=== PATIENT | male | born 1955 | race African-American/Black ===

== ENCOUNTER 2019-10-23 08:57 | Emergency (ER) | payer OTHER ==
[~2019-10-23] VITALS: Ht 162.6 cm; Wt 77.1 kg
[2019-10-23 09:56] LABS: BASO % 0 % (0-3); EOS % 0 % (0-3); HEMATOCRIT 39.8 % (39.0-53.0); HEMOGLOBIN 13.1 g/dL (13.0-17.5); LYMPH # 1.6 x10^3/uL (1.0-4.8); LYMPH % 13 % (24-48); MEAN CORPUSCULAR HEMOGLOBIN 33 pg (25-35); MEAN CORPUSCULAR HGB CONC 33 g/dL (31-37); MEAN CORPUSCULAR VOLUME 99 fL (79-100); MONO % 8 % (0-9); NEUT # 9.1 x10^3uL (1.8-7.7); NEUT % 78 % (31-73); PLATELET COUNT 295 x10^3/uL (140-400); RED BLOOD COUNT 4.02 x10^6/uL (4.30-5.70); RED CELL DISTRIBUTION WIDTH 13.2 % (11.5-14.5); WHITE BLOOD COUNT 11.7 x10^3/uL (4.0-11.0)
[2019-10-23 10:00] LABS: CALCIUM 8.1 mg/dL (8.5-10.1); CREATININE 0.9 mg/dL (0.7-1.3); GFR 102.5
--- NOTE | 2019-10-23 10:01 | RAD ---
EXAM: Abdomen acute complete. HISTORY: Pain. COMPARISON: None. FINDINGS: A frontal view of the chest and frontal upright and supine views of the abdomen are obtained. There is linear atelectasis or scarring within the lingula and bilateral lower lobes. There is no consolidation, pleural effusion or pneumothorax. The heart is normal in size. There is gas and stool within the colon. There is no evidence of bowel obstruction. There is no free air. There are multiple pelvic phleboliths. IMPRESSION: 1. No acute pulmonary finding. 2. Nonobstructive bowel gas pattern. Electronically signed by: Jeannine Grover MD (10/23/2019 9:58 AM) [facility]
[2019-10-23 10:06] LABS: ALBUMIN/GLOBULIN RATIO 0.9 (1.0-1.7); TOTAL BILIRUBIN 0.5 mg/dL (0.2-1.0); TOTAL PROTEIN 6.5 g/dL (6.4-8.2)
[2019-10-23] MEDS ORDERED: POTASSIUM BICARB 20 MEQ EFFERVESCENT TABLET. PO ONE (10:30)
[2019-10-23] MEDS ORDERED: POTA20TA4 PO (11:08)
[2019-10-23] MEDS ORDERED: LOPE-101 PO (11:08)
--- NOTE | 2019-10-23 11:08 | PHYS DOC ---
Past History Past Medical History: Hypertension, Other Additional Past Medical Histor: ulcerative colitis, vertigo Past Surgical History: Tonsillectomy Additional Smoking Information: " quit 20 years ago " Alcohol Use: None Drug Use: None Social History Narrative: " 15 years ago I used to use marijauna, and cocaine" Adult General Chief Complaint Chief Complaint: DIARRHEA HPI HPI Patient is a 64-year-old male with history of ulcer colitis and hypertension who presents with watery diarrhea past 2 days occasionally tinged with bright red blood. Denies abdominal pain nausea vomiting. No dizziness lightheadedness. No chest pain palpitations shortness of breath. No recent antibiotics. No other acute symptoms or complaints. Patient recently fired at [employer] for fall and was diagnosed with neck strain. Patient states he is instructed to wear the cervical collar until he follows up with neurosurgeon. Patient's currently resides at a [facility].[] Review of Systems Review of Systems Review of symptoms as per history of present illness. All other review symptoms are negative. All other systems were reviewed and found to be within normal limits, except as documented in this note. Current Medications Current Medications Current Medications Medications (Trade) Dose Ordered Sig/Rafi Start Time Stop Time Status Last Admin Dose Admin Potassium Bicarbonate (Potassium Effervescent Tablet) 40 meq 1X ONCE 10/23/19 10:30 10/23/19 10:31 DC 10/23/19 10:32 40 MEQ Allergies Allergies Allergies Coded Allergies Type Severity Reaction Last Updated Verified Sulfa (Sulfonamide Antibiotics) Allergy Unknown Hives 10/23/19 Yes ranitidine Allergy Unknown 10/23/19 Yes Uncoded Allergies Type Severity Reaction Last Updated Verified horse serum Allergy Unknown 10/23/19 Physical Exam Physical Exam Constitutional: Well developed, well nourished, no acute distress, non-toxic appearance. [] HENT: Normocephalic, atraumatic, bilateral external ears normal, oropharynx moist, no oral exudates, nose normal. [] Eyes: PERRLA, EOMI, conjunctiva normal, no discharge. [] Neck: Supple, soft rigid cervical collar in place. [] Cardiovascular:Heart rate regular rhythm, no murmur [] Lungs & Thorax: Bilateral breath sounds clear to auscultation [] Abdomen: Bowel sounds normal, soft, no distention, increased bowel sounds, no tenderness. [] Skin: Warm, dry, no erythema, no rash. [] Back: No tenderness, no CVA tenderness. [] Extremities: No tenderness. [] Neurologic: Alert and oriented X 3, normal motor function, normal sensory function, no focal deficits noted. [] Psychologic: Affect normal, judgement normal, mood normal. [] Current Patient Data Vital Signs Vital Signs Date Time Temp Pulse Resp B/P (MAP) Pulse Ox O2 Delivery O2 Flow Rate FiO2 10/23/19 10:41 75 16 149/86 (107) 95 Room Air 10/23/19 09:20 98.3 Lab Results Laboratory Tests Test 10/23/19 09:39 White Blood Count 11.7 x10^3/uL (4.0-11.0) H Red Blood Count 4.02 x10^6/uL (4.30-5.70) L Hemoglobin 13.1 g/dL (13.0-17.5) Hematocrit 39.8 % (39.0-53.0) Mean Corpuscular Volume 99 fL (79-100) Mean Corpuscular Hemoglobin 33 pg (25-35) Mean Corpuscular Hemoglobin Concent 33 g/dL (31-37) Red Cell Distribution Width 13.2 % (11.5-14.5) Platelet Count 295 x10^3/uL (140-400) Neutrophils (%) (Auto) 78 % (31-73) H Lymphocytes (%) (Auto) 13 % (24-48) L Monocytes (%) (Auto) 8 % (0-9) Eosinophils (%) (Auto) 0 % (0-3) Basophils (%) (Auto) 0 % (0-3) Neutrophils # (Auto) 9.1 x10^3uL (1.8-7.7) H Lymphocytes # (Auto) 1.6 x10^3/uL (1.0-4.8) Monocytes # (Auto) 1.0 x10^3/uL (0.0-1.1) Eosinophils # (Auto) 0.0 x10^3/uL (0.0-0.7) Basophils # (Auto) 0.0 x10^3/uL (0.0-0.2) Sodium Level 138 mmol/L (136-145) Potassium Level 3.0 mmol/L (3.5-5.1) L Chloride Level 104 mmol/L (98-107) Carbon Dioxide Level 28 mmol/L (21-32) Anion Gap 6 (6-14) Blood Urea Nitrogen 10 mg/dL (8-26) Creatinine 0.9 mg/dL (0.7-1.3) Estimated GFR (Cockcroft-Gault) 102.5 BUN/Creatinine Ratio 11 (6-20) Glucose Level 105 mg/dL (70-99) H Calcium Level 8.1 mg/dL (8.5-10.1) L Total Bilirubin 0.5 mg/dL (0.2-1.0) Aspartate Amino Transferase (AST) 18 U/L (15-37) Alanine Aminotransferase (ALT) 26 U/L (16-63) Alkaline Phosphatase 47 U/L (46-116) Troponin I Quantitative < 0.017 ng/mL (0-0.055) Total Protein 6.5 g/dL (6.4-8.2) Albumin 3.0 g/dL (3.4-5.0) L Albumin/Globulin Ratio 0.9 (1.0-1.7) L EKG EKG [EKG: Sinus rhythm, rate 70, ST elevation noted in anterior leads, incomplete right bundle branch block. ] Radiology/Procedures Radiology/Procedures [Abdominal series: No obstruction] Course & Med Decision Making Course & Med Decision Making Pertinent Labs and Imaging studies reviewed. (See chart for details) [Potassium 3.0. Oral potassium given the emergency department. Blood pressure improved without treatment. Patient denies chest pain shortness breath, nausea or other anginal:. No comparison EKG available. Will treat hypokalemia and have patient follow up with his PCP for reevaluation consider if outpatient testing. Return precautions reviewed. Patient verbalizes understanding agreement discharge instructions prior to departure.] Dragon Disclaimer Dragon Disclaimer This electronic medical record was generated, in whole or in part, using a voice recognition dictation system. Departure Departure: Impression: Primary Impression: Hypokalemia Additional Impressions: Diarrhea Abnormal EKG Disposition: 01 HOME, SELF-CARE Condition: STABLE Referrals: ONEAL SWEET MD (PCP) Patient Instructions: Diarrhea, [id number], Hypokalemia-Brief Additional Instructions: Take Imodium [id number] for diarrhea and potassium as directed. Follow-up with your PCP in 2-3 days recheck potassium level and review ER records, labs and EKG. Return to the ED if chest pain shortness of breath, dizziness lighthea dedness or other concerning symptoms. Scripts Loperamide HCl (Imodium A-D) 2 Mg Capsule 2 MG PO Q4HRS for diarrhea, #10 CAP Prov: KATEY MATHEWS DO 10/23/19 Potassium Chloride (KLOR-CON M20) 20 Meq Tab.er.prt 20 MEQ PO BID, #10 TAB.SR Prov: KATEY MATHEWS DO 10/23/19 Problem Qualifiers KATEY MATHEWS DO Oct 23, 2019 11:08
[2019-10-23 11:25] VITALS: BP 156/84
--- NOTE | 2019-10-23 16:38 | EKG ---
[address] [address] Test Date: 2019-10-23 Test Time: 10:27:08 Pat Name: SAHIL JACKSON Department: Room: Gender: M [employer]: : [id number] Requested By: KATEY MATHEWS Order Number: [id number] Reading MD: Measurements Intervals [place] Rate: 70 P: 125 ND: 144 QRS: 177 QRSD: 78 T: 154 QT: 358 QTc: 389 Interpretive Statements SUPRAVENTRICULAR RHYTHM ABNORMAL RIGHT AXIS DEVIATION INCOMPLETE RIGHT BUNDLE BRANCH BLOCK CONSIDER RIGHT VENTRICULAR HYPERTROPHY QRS(T) CONTOUR ABNORMALITY CONSIDER ANTEROLATERAL MYOCARDIAL DAMAGE ABNORMAL ECG RI6.01 No previous ECG available for comparison
== END 2019-10-23 11:20 | disposition home or self-care (01) ==
LOC: ER 08:57
DX: E87.6 Hypokalemia (principal); R19.7 Diarrhea, unspecified; R94.31 Abnormal electrocardiogram [ECG] [EKG]; I10 Essential (primary) hypertension; Z87.891 Personal history of nicotine dependence; Z88.2 Allergy status to sulfonamides; Z88.8 Allergy status to other drugs, medicaments and biological substances
CPT/HCPCS: 36415; 74022; 80053; 84484; 85025; 93005; 99285

== ENCOUNTER 2019-11-18 12:51 | Emergency (ER) | payer OTHER ==
[~2019-11-18 12:51] MED LIST: LOPE-101 PO; POTA20TA4 PO
[2019-11-18 13:15] VITALS: BP 159/67
[2019-11-18] MEDS: IV NORMAL SALINE 1,000ML 1,000 ML IV SCH (13:32)
[2019-11-18 14:26] LABS: BASO % 0 % (0-3); EOS # 0.1 x10^3/uL (0.0-0.7); EOS % 1 % (0-3); HEMATOCRIT 44.7 % (39.0-53.0); HEMOGLOBIN 14.9 g/dL (13.0-17.5); LYMPH # 2.5 x10^3/uL (1.0-4.8); LYMPH % 27 % (24-48); MEAN CORPUSCULAR HEMOGLOBIN 33 pg (25-35); MEAN CORPUSCULAR HGB CONC 33 g/dL (31-37); MEAN CORPUSCULAR VOLUME 99 fL (79-100); MONO # 1.2 x10^3/uL (0.0-1.1); MONO % 12 % (0-9); NEUT # 5.6 x10^3uL (1.8-7.7); NEUT % 60 % (31-73); PLATELET COUNT 257 x10^3/uL (140-400); RED BLOOD COUNT 4.52 x10^6/uL (4.30-5.70); RED CELL DISTRIBUTION WIDTH 13.9 % (11.5-14.5); WHITE BLOOD COUNT 9.4 x10^3/uL (4.0-11.0)
[2019-11-18 14:31] LABS: CALCIUM 8.5 mg/dL (8.5-10.1); CREATININE 1.1 mg/dL (0.7-1.3); GFR 81.3; POTASSIUM 3.9 mmol/L (3.5-5.1)
[2019-11-18 14:36] LABS: ALBUMIN 3.2 g/dL (3.4-5.0); ALBUMIN/GLOBULIN RATIO 0.9 (1.0-1.7); TOTAL BILIRUBIN 0.8 mg/dL (0.2-1.0); TOTAL PROTEIN 6.9 g/dL (6.4-8.2)
[2019-11-18] MEDS: ACETAMINOPHEN 500 MG TABLET PO ONE (14:45)
[2019-11-18] MEDS: methylPREDNISolone SOD SUCC PF 125 MG/2 ML VIAL. IV ONE (14:45)
[2019-11-18] MEDS: IPRATRPIUM/ALBUTEROL 0.5/2.5MG 3 ML NEBU. NEB ONE (14:45)
[2019-11-18 14:52] LABS: BACTERIA,URINE 0 /HPF (0-FEW); BILIRUBIN,URINE NEG (NEG); CLARITY,URINE CLEAR; COLOR,URINE AMBER; GLUCOSE,URINE NEG (NEG); NITRITE,URINE NEG (NEG); RBC,URINE 0 /HPF (0-2); SQUAMOUS EPITHELIAL CELL,UR OCC /LPF; UROBILINOGEN,URINE 0.2 mg/dL (0.2 mg/dL); WBC,URINE 0 /HPF (0-4)
--- NOTE | 2019-11-18 15:11 | PHYS DOC ---
Past History Past Medical History: Other Additional Past Medical Histor: colitis; vertigo Past Surgical History: Tonsillectomy Alcohol Use: None Drug Use: None Adult General Chief Complaint Chief Complaint: WEAKNESS/GENERALIZED HPI HPI Patient is a 84-year-old male who presented to ER today for evaluation of nausea, lower abdominal pain, weakness for about week. Patient denies any diarrhea, no fever. Patient said he has history of colitis, he feel like he has infection again. He denies any recent antibiotic usage. Patient denies any chest pain, no trouble breathing, no diarrhea. Review of Systems Review of Systems Constitutional: Denies fever or chills [] Eyes: Denies change in visual acuity, redness, or eye pain [] HENT: Denies nasal congestion or sore throat [] Respiratory: Denies cough or shortness of breath [] Cardiovascular: No additional information not addressed in HPI [] GI: Denies abdominal pain, nausea, vomiting, bloody stools or diarrhea [] : Denies dysuria or hematuria [] Musculoskeletal: Denies back pain or joint pain [] Integument: Denies rash or skin lesions [] Neurologic: Denies headache, focal weakness or sensory changes [] Endocrine: Denies polyuria or polydipsia [] All other systems were reviewed and found to be within normal limits, except as documented in this note. Current Medications Current Medications Current Medications Medications (Trade) Dose Ordered Sig/Rafi Start Time Stop Time Status Last Admin Dose Admin Acetaminophen (Tylenol) 1,000 mg 1X ONCE 11/18/19 14:45 11/18/19 14:46 DC Albuterol/ Ipratropium (Duoneb) 3 ml 1X ONCE 11/18/19 14:45 11/18/19 14:46 DC Methylprednisolone Sodium Succinate (SOLU-Medrol 125MG VIAL) 125 mg 1X ONCE 11/18/19 14:45 11/18/19 14:46 DC Sodium Chloride 1,000 ml @ 1,000 mls/hr Q1H 11/18/19 13:32 11/18/19 14:31 DC Allergies Allergies Allergies Coded Allergies Type Severity Reaction Last Updated Verified Sulfa (Sulfonamide Antibiotics) Allergy Unknown Hives 10/23/19 Yes ranitidine Allergy Unknown 10/23/19 Yes Uncoded Allergies Type Severity Reaction Last Updated Verified horse serum Allergy Unknown 10/23/19 Physical Exam Physical Exam Constitutional: Well developed, well nourished, no acute distress, non-toxic appearance. [] HENT: Normocephalic, atraumatic, bilateral external ears normal, oropharynx moist, no oral exudates, nose normal. [] Eyes: PERRLA, EOMI, conjunctiva normal, no discharge. [] Neck: Normal range of motion, no tenderness, supple, no stridor. [] Cardiovascular:Heart rate regular rhythm, no murmur [] Lungs & Thorax: Bilateral breath sounds clear to auscultation [] Abdomen: Bowel sounds normal, soft, no tenderness, no masses, no pulsatile masses. [] Skin: Warm, dry, no erythema, no rash. [] Back: No tenderness, no CVA tenderness. [] Extremities: No tenderness, no cyanosis, no clubbing, ROM intact, no edema. [] Neurologic: Alert and oriented X 3, normal motor function, normal sensory func tion, no focal deficits noted. [] Psychologic: Affect normal, judgement normal, mood normal. [] Current Patient Data Vital Signs Vital Signs Date Time Temp Pulse Resp B/P (MAP) Pulse Ox O2 Delivery O2 Flow Rate FiO2 11/18/19 13:15 90 18 98 Room Air Lab Results Laboratory Tests Test 11/18/19 14:03 White Blood Count 9.4 x10^3/uL (4.0-11.0) Red Blood Count 4.52 x10^6/uL (4.30-5.70) Hemoglobin 14.9 g/dL (13.0-17.5) Hematocrit 44.7 % (39.0-53.0) Mean Corpuscular Volume 99 fL (79-100) Mean Corpuscular Hemoglobin 33 pg (25-35) Mean Corpuscular Hemoglobin Concent 33 g/dL (31-37) Red Cell Distribution Width 13.9 % (11.5-14.5) Platelet Count 257 x10^3/uL (140-400) Neutrophils (%) (Auto) 60 % (31-73) Lymphocytes (%) (Auto) 27 % (24-48) Monocytes (%) (Auto) 12 % (0-9) H Eosinophils (%) (Auto) 1 % (0-3) Basophils (%) (Auto) 0 % (0-3) Neutrophils # (Auto) 5.6 x10^3uL (1.8-7.7) Lymphocytes # (Auto) 2.5 x10^3/uL (1.0-4.8) Monocytes # (Auto) 1.2 x10^3/uL (0.0-1.1) H Eosinophils # (Auto) 0.1 x10^3/uL (0.0-0.7) Basophils # (Auto) 0.0 x10^3/uL (0.0-0.2) Urine Collection Type Unknown Urine Color Danette Urine Clarity Clear Urine pH 6.5 Urine Specific [place] 1.025 Urine Protein Neg (NEG-TRACE) Urine Glucose (UA) Neg mg/dL (NEG) Urine Ketones (Stick) Neg mg/dL (NEG) Urine Blood Neg (NEG) Urine Nitrite Neg (NEG) Urine Bilirubin Neg (NEG) Urine Urobilinogen Dipstick 0.2 mg/dL (0.2 mg/dL) Urine Leukocyte Esterase Neg (NEG) Urine RBC 0 /HPF (0-2) Urine WBC 0 /HPF (0-4) Urine Squamous Epithelial Cells Occ /LPF Urine Bacteria 0 /HPF (0-FEW) Urine Mucus Slight /LPF Sodium Level 141 mmol/L (136-145) Potassium Level 3.9 mmol/L (3.5-5.1) Chloride Level 104 mmol/L (98-107) Carbon Dioxide Level 31 mmol/L (21-32) Anion Gap 6 (6-14) Blood Urea Nitrogen 12 mg/dL (8-26) Creatinine 1.1 mg/dL (0.7-1.3) Estimated GFR (Cockcroft-Gault) 81.3 BUN/Creatinine Ratio 11 (6-20) Glucose Level 93 mg/dL (70-99) Calcium Level 8.5 mg/dL (8.5-10.1) Total Bilirubin 0.8 mg/dL (0.2-1.0) Aspartate Amino Transferase (AST) 24 U/L (15-37) Alanine Aminotransferase (ALT) 35 U/L (16-63) Alkaline Phosphatase 57 U/L (46-116) Total Protein 6.9 g/dL (6.4-8.2) Albumin 3.2 g/dL (3.4-5.0) L Albumin/Globulin Ratio 0.9 (1.0-1.7) L Lipase 112 U/L (73-393) EKG EKG [] Radiology/Procedures Radiology/Procedures [] Course & Med Decision Making Course & Med Decision Making Pertinent Labs and Imaging studies reviewed. (See chart for details) [] Dragon Disclaimer Dragon Disclaimer This electronic medical record was generated, in whole or in part, using a voice recognition dictation system. Departure Departure: Impression: Primary Impression: Colitis Disposition: HOME, SELF-CARE Condition: STABLE Referrals: ONEAL SWEET MD (PCP) follow up with your doctor next week Patient Instructions: Colitis Additional Instructions: Thank you for visiting our Emergency Department. We appreciate you trusting us with your care. If any additional problems come up don't hesitate to return to visit us. Please follow up with your primary care provider so they can plan additional care if needed and know about the problem that you had. If symptoms worsen come back to the Emergency Department. Any concerning symptoms that start such as chest pain, shortness of air, weakness or numbness on one side of the body, running high fevers or any other concerning symptoms return to the ER. Scripts Ciprofloxacin Hcl (CIPRO) 500 Mg Tablet 1 TAB PO BID for colitis for 7 Days, #14 TAB 0 Refills Prov: MISSY HERRERA DO 11/18/19 Metronidazole (FLAGYL) 500 Mg Tablet 1 TAB PO TID for colitis for 7 Days, #21 TAB Prov: MISSY HERRERA DO 11/18/19 MISSY HERRERA DO Nov 18, 2019 15:11
[2019-11-18] MEDS ORDERED: IOHEXOL 300 MG/ML 75 ML VIAL. IV ONE (16:00)
[2019-11-18] MEDS: IOHEXOL 300 MG/ML 75 ML VIAL. IV ONE (16:32)
--- NOTE | 2019-11-18 17:00 | RAD ---
CT ABD PELV W/ IV CONTRST ONLY Indication: Abdominal pain. Exposure: One or more of the following individualized dose reduction techniques were utilized for this examination: 1. Automated exposure control 2. Adjustment of the mA and/or kV according to patient size 3. Use of iterative reconstruction technique. Technique: Intravenous contrast was given. No oral contrast per request. Comparison: None FINDINGS: Lung bases are clear. Coronary calcification. Several tiny subcentimeter hepatic lesions are seen, would most commonly be benign in the absence of risk factors such as primary malignancy. Spleen unremarkable. Pancreas unremarkable. Pancreatic duct mildly dilated, about 5 mm centrally. No evidence of adrenal mass. Kidneys demonstrate symmetric enhancement. No evidence of hydronephrosis. Nonobstructive calculus in the upper pole the right kidney measuring 5 mm. No evidence of renal mass. No calcified gallstone. The aorta is calcified without aneurysm. Small mesenteric lymph nodes are seen, measuring up to 8 mm short axis. No pathologic lymph node enlargement is seen. Very small hiatal hernia. Stomach is not distended. Mild duodenal wall thickening may be due to lack of distention. No significant small bowel distention. Mild wall thickening of the sigmoid colon may be due to nondistention. Mild colonic diverticulosis. No paracolonic fatty stranding is seen. Appendix is not clearly identified. No evidence of pneumoperitoneum. No significant ascites. Urinary bladder is incompletely distended limiting evaluation. Seminal vesicles are mildly prominent bilaterally. Vertebral body height and alignment are intact. No evidence of aggressive bone destruction. IMPRESSION: 1. Colonic diverticulosis. Mild wall thickening of the sigmoid colon, may just be due to nondistention, no convincing evidence of acute colitis. 2. Several tiny hepatic lesions, likely benign in the absence of other risk factor. 3. Small nonobstructive 5 mm calculus in the upper pole the right kidney. Electronically signed by: Peter Mcpherson MD (11/18/2019 4:57 PM) [facility]
[2019-11-18] MEDS ORDERED: CIPROFLOXACIN HCL 500 MG TABLET PO ONE (17:15)
[2019-11-18] MEDS ORDERED: metroNIDAZOLE 500 MG TABLET PO ONE (17:15)
[2019-11-18] MEDS ORDERED: CIPR500T94 PO (17:24)
[2019-11-18] MEDS ORDERED: METR500T PO (17:24)
== END 2019-11-18 17:30 | disposition home or self-care (01) ==
LOC: ER 12:51
DX: K52.9 Noninfective gastroenteritis and colitis, unspecified (principal); Z88.2 Allergy status to sulfonamides; Z88.8 Allergy status to other drugs, medicaments and biological substances
CPT/HCPCS: 36415; 74177; 80053; 81001; 83690; 85025; 96360; 99285; Q9967; J7030

== ENCOUNTER 2019-11-21 00:47 | Emergency (ER) | payer OTHER ==
[~2019-11-21] VITALS: Ht 162.6 cm; Wt 77.1 kg
[~2019-11-21 00:47] MED LIST changes: +CIPR500T94 PO; +METR500T PO
[2019-11-21] MEDS ORDERED: ONDANSETRON PF 4 MG/2 ML VIAL. IVP ONE (01:15)
[2019-11-21] MEDS ORDERED: IV NORMAL SALINE 1,000ML 1,000 ML IV ONE (01:15)
[2019-11-21] MEDS ORDERED: FAMOTIDINE 20 MG/2 ML VIAL IVP ONE (01:15)
[2019-11-21 01:49] LABS: BASO % 0 % (0-3); EOS % 0 % (0-3); HEMATOCRIT 41.9 % (39.0-53.0); HEMOGLOBIN 13.9 g/dL (13.0-17.5); LYMPH # 1.2 x10^3/uL (1.0-4.8); LYMPH % 16 % (24-48); MEAN CORPUSCULAR HEMOGLOBIN 33 pg (25-35); MEAN CORPUSCULAR HGB CONC 33 g/dL (31-37); MEAN CORPUSCULAR VOLUME 98 fL (79-100); MONO # 0.2 x10^3/uL (0.0-1.1); MONO % 3 % (0-9); NEUT # 5.9 x10^3uL (1.8-7.7); NEUT % 81 % (31-73); PLATELET COUNT 268 x10^3/uL (140-400); RED BLOOD COUNT 4.27 x10^6/uL (4.30-5.70); RED CELL DISTRIBUTION WIDTH 13.5 % (11.5-14.5); WHITE BLOOD COUNT 7.3 x10^3/uL (4.0-11.0)
--- NOTE | 2019-11-21 01:51 | PHYS DOC ---
Past History Past Medical History: Other Additional Past Medical Histor: colitis; vertigo Past Surgical History: Tonsillectomy Smoking: Non-smoker Alcohol Use: None Drug Use: None Adult General Chief Complaint Chief Complaint: MULTIPLE COMPLAINTS HPI HPI 64-year-old male presents via EMS from the [facility] with report of continued pain and generalized weakness. Patient reports history of fall one month ago for which he was seen at [facility]. Patient reports he was instructed to wear a neck brace. Patient is unsure why. Patient also reports some abdominal discomfort for which he thinks is secondary to colitis. Patient was seen at [facility] in the emergency department for this complaint and was started on empiric antibiotics and pain medication. Per [facility] review patient did undergo CT i maging which was nonspecific for any acute process. Patient reports his pain is not well controlled. Patient reports that [facility] was unable to get his medications to him with exception for one dose. Review of Systems Review of Systems Constitutional: Denies fever or chills Eyes: Denies redness or eye pain HENT: Denies nasal congestion or sore throat Respiratory: Denies cough or shortness of breath Cardiovascular: Reports chest pain; denies palpitations GI: Reports abdominal pain and diarrhea; denies vomiting : Denies dysuria or hematuria Musculoskeletal: Denies back pain or joint pain Integument: Denies rash or skin lesions Neurologic: Reports headache; denies focal weakness or sensory changes Complete systems were reviewed and found to be within normal limits, except as documented in this note. Current Medications Current Medications Current Medications Medications (Trade) Dose Ordered Sig/Rafi Start Time Stop Time Status Last Admin Dose Admin Famotidine (Pepcid Vial) 20 mg 1X ONCE 11/21/19 01:15 11/21/19 01:16 UNV Ondansetron HCl (Zofran) 4 mg 1X ONCE 11/21/19 01:15 11/21/19 01:16 UNV Sodium Chloride 1,000 ml @ 1,000 mls/hr 1X ONCE 11/21/19 01:15 11/21/19 02:14 UNV 11/21/19 01:36 1,000 MLS/HR Allergies Allergies Allergies Coded Allergies Type Severity Reaction Last Updated Verified Sulfa (Sulfonamide Antibiotics) Allergy Unknown Hives 10/23/19 Yes ranitidine Allergy Unknown 10/23/19 Yes Uncoded Allergies Type Severity Reaction Last Updated Verified horse serum Allergy Unknown 10/23/19 Physical Exam Physical Exam Constitutional: Well developed, well nourished, agitated, non-toxic appearance HENT: Normocephalic, atraumatic, oropharynx moist Eyes: PERRL, EOMI, conjunctiva normal, no discharge Neck: Supple, c-collar in place Cardiovascular: Heart rate normal, regular rhythm Lungs & Thorax: Bilateral breath sounds clear to auscultation, no wheezing Abdomen: Soft, LLQ tenderness Skin: Warm, dry, no erythema, no rash Back: No tenderness, no CVA tenderness Extremities: No tenderness, ROM intact, no edema Neurologic: Alert and oriented X 3, normal motor function, normal sensory function, no focal deficits noted Psychologic: Affect normal, judgement normal EKG EKG @0118 NSR at 79bpm, slight ST elevations noted to I and aVL, some ST depressions noted to III and aVF, hyperacute t waves in V2-V5, compared to prior EKG per [facility] review from 10/23/[address]ressions but did not note the elevation in I or aVL Radiology/Procedures Radiology/Procedures PROCEDURE: CHEST PA & LATERAL & CT HEAD & CERVICAL SPINE Chest PA and lateral: Reason for examination: Chest pain. The heart size is normal. Mediastinum is unremarkable. Lung joseph appear to be hyperaerated. There is some linear atelectasis at the left lung base. No acute bony abnormalities are seen. Impression: Linear atelectasis at the left lung base. No other acute abnormality seen in the chest. CT head without contrast: Reason for examination: Headache and neck pain after fall. Weakness. Axial images were obtained through the brain. No contrast was administered. The ventricular systems are symmetric and not dilated. No midline shift is seen. There is no evidence of intracranial hemorrhage, infarct, mass or edema. No abnormalities of seen at the orbits. The paranasal sinuses and mastoid air cells are clear. No acute abnormality seen in the skull. There is a small 3.7 mm density possibly metallic in the soft tissues in the right frontal scalp region. IMPRESSION: No acute intracranial abnormality evident. Small 3.7 mm density possibly metallic in the soft tissues in the right frontal scalp region. CT cervical spine without contrast: Helical images were obtained through the cervical spine from skull base through the thoracic apices with no contrast administered. Reconstruction was performed in sagittal and coronal planes. The C1 ring appears to be intact. The odontoid process is intact and normally centered between the lateral masses of C1. The cervical vertebral bodies are normally aligned anteriorly and posteriorly. No acute fracture or subluxation is seen. The posterior elements are intact. There is however degenerative spondylosis with disc disease at the C4-5 and C5-6 disc levels. Remaining intervertebral discs are maintained. No spinal stenosis is seen in the prevertebral soft tissues are normal. IMPRESSION: Degenerative disc disc disease at the C4-5 and C5-C6 levels. No acute abnormality in the cervical spine. Exposure: One or more of the following individualized dose reduction techniques were utilized for this examination: 1. Automated exposure control 2. Adjustment of the mA and/or kV according to patient size 3. Use of iterative reconstruction technique. Electronically signed by: Kristie Calvillo MD (11/21/2019 2:22 AM) [id number] Course & Med Decision Making Course & Med Decision Making Pertinent Labs and Imaging studies reviewed. (See chart for details) Patient presents with report of continued pain primarily to the head and abdomen. Patient with recent evaluation in the emergency department a few days ago for possible colitis. CT imaging at that time did not show acute colitis, however patient was treated. Patient reports he has just started his medication for this condition. Labs obtained and posted to chart. CT head/cervical spine without acute process. Chest x-ray without acute process. EKG stable. Troponin within normal limits. HEART Score 3. Patient stable for discharge with outpatient follow-up with PCP. Discussed findings and plan with patient, who acknowledges understanding and agreement. Dragon Disclaimer Dragon Disclaimer This electronic medical record was generated, in whole or in part, using a voice recognition dictation system. Departure Departure: Impression: Primary Impression: Headache Additional Impressions: History of colitis Weakness Chest pain Disposition: 01 HOME, SELF-CARE Condition: STABLE Referrals: ONEAL SWEET MD (PCP) Patient Instructions: Chest Pain (Nonspecific), [id number], Colitis, Headache, FAQs, Weakness, [id number] Additional Instructions: Please continue previously prescribed medications for colitis. Scripts Butalb/Acetaminophen/Caffeine ([id number] 50-325-40) 1 Each Tablet 1 EACH PO Q6HRS PRN for HEADACHE, #14 TAB Prov: INDER LOPEZ DO 11/21/19 Orphenadrine Citrate (ORPHENADRINE CITRATE) 100 Mg Tablet.er 1 TAB PO BID PRN for MUSCLE PAIN, #14 TAB 0 Refills Prov: INDER LOPEZ DO 11/21/19 HEART Score for Chest Pain PTs The HEART Score for CP Pts HEART Score for Chest Pain: HEART Score for Chest Pain Response (Comments) Value History Slighlty/Non-Suspicious 0 ECG Nonspecific Repolarizatio 1 Age >45 - < 65 1 Risk Factors No Risk Factors 0 Troponin < Normal Limit 0 Total 2 Risk Factors: Risk Factors: DM, Current or recent (<one month) smoker, HTN, HLP, family history of CAD, obesity. Risk Scores: Score 0 - 3: 2.5% MACE over next 6 weeks - Discharge Home Score 4 - 6: 20.3% MACE over next 6 weeks - Admit for Clinical Observation Score 7 - 10: 72.7% MACE over next 6 weeks - Early Invasive Strategies Problem Qualifiers Primary Impression: Headache Headache type: unspecified Headache chronicity pattern: acute headache Intractability: not intractable Qualified Codes: R51 - Headache Additional Impressions: Chest pain Chest pain type: unspecified Qualified Codes: R07.9 - Chest pain, unspecified INDER LOPEZ DO Nov 21, 2019 01:51
[2019-11-21 02:01] LABS: CALCIUM 8.6 mg/dL (8.5-10.1); CREATININE 0.9 mg/dL (0.7-1.3); GFR 102.5; POTASSIUM 4.4 mmol/L (3.5-5.1)
[2019-11-21 02:16] LABS: ALBUMIN 3.1 g/dL (3.4-5.0); ALBUMIN/GLOBULIN RATIO 0.9 (1.0-1.7); TOTAL BILIRUBIN 0.4 mg/dL (0.2-1.0); TOTAL PROTEIN 6.7 g/dL (6.4-8.2)
--- NOTE | 2019-11-21 02:25 | RAD ---
Chest PA and lateral: Reason for examination: Chest pain. The heart size is normal. Mediastinum is unremarkable. Lung joseph appear to be hyperaerated. There is some linear atelectasis at the left lung base. No acute bony abnormalities are seen. Impression: Linear atelectasis at the left lung base. No other acute abnormality seen in the chest. CT head without contrast: Reason for examination: Headache and neck pain after fall. Weakness. Axial images were obtained through the brain. No contrast was administered. The ventricular systems are symmetric and not dilated. No midline shift is seen. There is no evidence of intracranial hemorrhage, infarct, mass or edema. No abnormalities of seen at the orbits. The paranasal sinuses and mastoid air cells are clear. No acute abnormality seen in the skull. There is a small 3.7 mm density possibly metallic in the soft tissues in the right frontal scalp region. IMPRESSION: No acute intracranial abnormality evident. Small 3.7 mm density possibly metallic in the soft tissues in the right frontal scalp region. CT cervical spine without contrast: Helical images were obtained through the cervical spine from skull base through the thoracic apices with no contrast administered. Reconstruction was performed in sagittal and coronal planes. The C1 ring appears to be intact. The odontoid process is intact and normally centered between the lateral masses of C1. The cervical vertebral bodies are normally aligned anteriorly and posteriorly. No acute fracture or subluxation is seen. The posterior elements are intact. There is however degenerative spondylosis with disc disease at the C4-5 and C5-6 disc levels. Remaining intervertebral discs are maintained. No spinal stenosis is seen in the prevertebral soft tissues are normal. IMPRESSION: Degenerative disc disc disease at the C4-5 and C5-C6 levels. No acute abnormality in the cervical spine. Exposure: One or more of the following individualized dose reduction techniques were utilized for this examination: 1. Automated exposure control 2. Adjustment of the mA and/or kV according to patient size 3. Use of iterative reconstruction technique. Electronically signed by: Kristie Calvillo MD (11/21/2019 2:22 AM) [facility]
[2019-11-21 03:08] LABS: BILIRUBIN,URINE NEG (NEG); CLARITY,URINE CLEAR; COLOR,URINE YELLOW; GLUCOSE,URINE NEG (NEG)
[2019-11-21 03:09] LABS: BACTERIA,URINE 0 /HPF (0-FEW); NITRITE,URINE NEG (NEG); RBC,URINE 0 /HPF (0-2); SQUAMOUS EPITHELIAL CELL,UR OCC /LPF; UROBILINOGEN,URINE 0.2 mg/dL (0.2 mg/dL); WBC,URINE OCC /HPF (0-4)
[2019-11-21] MEDS ORDERED: BUTA1TAB23 PO (03:21)
[2019-11-21] MEDS ORDERED: ORPH-16 PO (03:21)
[2019-11-21] MEDS ORDERED: BUTALB/APAP/CAFEIN 50/325/40MG TABLET. PO ONE (03:30)
[2019-11-21 03:35] VITALS: BP 140/72
--- NOTE | 2019-11-21 05:24 | EKG ---
[address] [address] Test Date: 2019-11-21 Test Time: 01:18:09 Pat Name: SAHIL JACKSON Department: Room: Gender: M [employer]: : 1955 Requested By: INDER LOPEZ Order Number: [id number] Reading MD: Measurements Intervals [place] Rate: 79 P: 71 AL: 152 QRS: 34 QRSD: 74 T: 26 QT: 344 QTc: 395 Interpretive Statements SINUS RHYTHM OTHERWISE NORMAL ECG RI6.01 No previous ECG available for comparison
== END 2019-11-21 03:36 | disposition home or self-care (01) ==
LOC: ER 00:47
DX: R51 Headache (principal); R53.1 Weakness; R07.9 Chest pain, unspecified; R19.7 Diarrhea, unspecified; Z88.2 Allergy status to sulfonamides; Z88.8 Allergy status to other drugs, medicaments and biological substances
CPT/HCPCS: 36415; 70450; 71046; 72125; 80053; 81001; 82553; 83605; 83690; 83735; 84484; 85025; 85610; 85730; 93005; 96361; 96374; 99285; J2405; J7030

== ENCOUNTER 2019-12-13 15:33 | Emergency (ER) | payer OTHER ==
[~2019-12-13] VITALS: Ht 162.6 cm; Wt 78.0 kg
[~2019-12-13 15:33] MED LIST changes: +BUTA1TAB23 PO; +ORPH-16 PO
[2019-12-13] MEDS ORDERED: IV NORMAL SALINE 1,000ML 1,000 ML IV ONE (16:15)
[2019-12-13] MEDS ORDERED: IOHEXOL 300 MG/ML 75 ML VIAL. IV ONE (16:30)
[2019-12-13 16:41] LABS: BASO % 0 % (0-3); EOS # 0.1 x10^3/uL (0.0-0.7); EOS % 2 % (0-3); HEMOGLOBIN 12.4 g/dL (13.0-17.5); LYMPH # 2.5 x10^3/uL (1.0-4.8); LYMPH % 38 % (24-48); MEAN CORPUSCULAR HEMOGLOBIN 33 pg (25-35); MEAN CORPUSCULAR HGB CONC 33 g/dL (31-37); MEAN CORPUSCULAR VOLUME 100 fL (79-100); MONO # 0.9 x10^3/uL (0.0-1.1); MONO % 13 % (0-9); NEUT # 3.1 x10^3uL (1.8-7.7); NEUT % 46 % (31-73); PLATELET COUNT 340 x10^3/uL (140-400); RED BLOOD COUNT 3.78 x10^6/uL (4.30-5.70); RED CELL DISTRIBUTION WIDTH 13.1 % (11.5-14.5); WHITE BLOOD COUNT 6.6 x10^3/uL (4.0-11.0)
--- NOTE | 2019-12-13 16:51 | RAD ---
Exam: CT abdomen and pelvis with contrast INDICATION: Abdominal pain TECHNIQUE: Sequential axial images through the abdomen and pelvis obtained following the administration of 75 mL of Omni 300 IV contrast. Sagittal and coronal reformatted images were reconstructed from the axial data and reviewed. Comparisons: 11/18/2019 FINDINGS: Heart size is normal. No pericardial effusion. Visualized lung bases are clear. No pleural effusion. Liver, spleen, pancreas, gallbladder and adrenals are unremarkable. These demonstrate symmetric enhancement. No perinephric inflammation or hydronephrosis. There is a nonobstructing 4 mm calculus at the mid right kidney. No ureteral calculi. Bladder is decompressed not well evaluated. Prostate is not enlarged. Mild wall thickening at the sigmoid colon is noted. Large and small bowel are unremarkable. Appendix is normal. No free intra-abdominal air or fluid. No obstruction. Abdominal aorta has a normal course and caliber. Abdominal vasculature is patent. No enlarged abdominal lymph nodes are identified. No suspicious osseous lesions or acute fractures. IMPRESSION: 1. Mild wall thickening at the sigmoid colon may represent a focal colitis. This may be infectious or inflammatory in etiology. 2. Nonobstructing right renal calculus. Exposure: One or more of the following in the visualized dose reduction techniques were utilized for this examination: 1. Automated exposure control 2. Adjustment of the MA and/or KV according to patient size 3. Use of iterative of reconstructive technique Electronically signed by: Alexa Robertson MD (12/13/2019 4:48 PM) [id number]
[2019-12-13 16:53] LABS: CALCIUM 8.6 mg/dL (8.5-10.1); CREATININE 1.1 mg/dL (0.7-1.3); GFR 81.3; POTASSIUM 3.9 mmol/L (3.5-5.1)
[2019-12-13 16:57] LABS: ALBUMIN 3.1 g/dL (3.4-5.0); ALBUMIN/GLOBULIN RATIO 0.8 (1.0-1.7); TOTAL BILIRUBIN 0.2 mg/dL (0.2-1.0); TOTAL PROTEIN 7.1 g/dL (6.4-8.2)
[2019-12-13 17:16] LABS: BACTERIA,URINE 0 /HPF (0-FEW); BILIRUBIN,URINE NEG (NEG); CLARITY,URINE CLEAR; COLOR,URINE YELLOW; GLUCOSE,URINE NEG (NEG); NITRITE,URINE NEG (NEG); RBC,URINE 0 /HPF (0-2); SQUAMOUS EPITHELIAL CELL,UR OCC /LPF; UROBILINOGEN,URINE 0.2 mg/dL (0.2 mg/dL)
--- NOTE | 2019-12-13 17:17 | PHYS DOC ---
Past History Past Medical History: Other Additional Past Medical Histor: colitis; vertigo Past Surgical History: Tonsillectomy Smoking: Non-smoker Alcohol Use: None Drug Use: None Adult General Chief Complaint Chief Complaint: ABDOMINAL PAIN HPI HPI 64-year-old male presents with intermittent abdominal pain. It is mostly in the left lower quadrant. It is a mild cramping sensation. The patient has a history of colitis. He has been having more difficulty the last couple of days 1 to get checked out. He denies bloody stools. He is most pain with defecation. Denies fever or chills. Review of Systems Review of Systems Constitutional: Denies fever or chills [] Eyes: Denies change in visual acuity, redness, or eye pain [] HENT: Denies nasal congestion or sore throat [] Respiratory: Denies cough or shortness of breath [] Cardiovascular: No additional information not addressed in HPI [] GI: Lower quadrant abdominal pain. Denies nausea, vomiting, bloody stools or diarrhea [] : Denies dysuria or hematuria [] Musculoskeletal: Denies back pain or joint pain [] Integument: Denies rash or skin lesions [] Neurologic: Denies headache, focal weakness or sensory changes [] Endocrine: Denies polyuria or polydipsia [] All other systems were reviewed and found to be within normal limits, except as documented in this note. Current Medications Current Medications Current Medications Medications (Trade) Dose Ordered Sig/Rafi Start Time Stop Time Status Last Admin Dose Admin Iohexol (Omnipaque 300 Mg/ml) 75 ml 1X ONCE 12/13/19 16:30 12/13/19 16:31 DC 12/13/19 16:22 75 ML Sodium Chloride 1,000 ml @ 1,000 mls/hr 1X ONCE 12/13/19 16:15 12/13/19 17:14 DC 12/13/19 16:15 1,000 MLS/HR Allergies Allergies Allergies Coded Allergies Type Severity Reaction Last Updated Verified Sulfa (Sulfonamide Antibiotics) Allergy Unknown Hives 10/23/19 Yes ranitidine Allergy Unknown 10/23/19 Yes Uncoded Allergies Type Severity Reaction Last Updated Verified horse serum Allergy Unknown 10/23/19 Physical Exam Physical Exam Constitutional: Well developed, well nourished, no acute distress, non-toxic appearance. [] HENT: Normocephalic, atraumatic, bilateral external ears normal, oropharynx moist, no oral exudates, nose normal. [] Eyes: PERRLA, EOMI, conjunctiva normal, no discharge. [] Neck: Normal range of motion, no tenderness, supple, no stridor. [] Cardiovascular:Heart rate regular rhythm, no murmur [] Lungs & Thorax: Bilateral breath sounds clear to auscultation [] Abdomen: Bowel sounds normal, soft, no tenderness, no masses, no pulsatile masses. [] Skin: Warm, dry, no erythema, no rash. [] Back: No tenderness, no CVA tenderness. [] Extremities: No tenderness, no cyanosis, no clubbing, ROM intact, no edema. [] Neurologic: Alert and oriented X 3, normal motor function, normal sensory function, no focal deficits noted. [] Psychologic: Affect normal, judgement normal, mood normal. [] Current Patient Data Vital Signs Vital Signs Date Time Temp Pulse Resp B/P (MAP) Pulse Ox O2 Delivery O2 Flow Rate FiO2 12/13/19 15:58 98.0 83 18 160/82 (108) 98 Room Air Lab Results Laboratory Tests Test 12/13/19 15:56 White Blood Count 6.6 x10^3/uL (4.0-11.0) Red Blood Count 3.78 x10^6/uL (4.30-5.70) L Hemoglobin 12.4 g/dL (13.0-17.5) L Hematocrit 38.0 % (39.0-53.0) L Mean Corpuscular Volume 100 fL (79-100) Mean Corpuscular Hemoglobin 33 pg (25-35) Mean Corpuscular Hemoglobin Concent 33 g/dL (31-37) Red Cell Distribution Width 13.1 % (11.5-14.5) Platelet Count 340 x10^3/uL (140-400) Neutrophils (%) (Auto) 46 % (31-73) Lymphocytes (%) (Auto) 38 % (24-48) Monocytes (%) (Auto) 13 % (0-9) H Eosinophils (%) (Auto) 2 % (0-3) Basophils (%) (Auto) 0 % (0-3) Neutrophils # (Auto) 3.1 x10^3uL (1.8-7.7) Lymphocytes # (Auto) 2.5 x10^3/uL (1.0-4.8) Monocytes # (Auto) 0.9 x10^3/uL (0.0-1.1) Eosinophils # (Auto) 0.1 x10^3/uL (0.0-0.7) Basophils # (Auto) 0.0 x10^3/uL (0.0-0.2) Sodium Level 144 mmol/L (136-145) Potassium Level 3.9 mmol/L (3.5-5.1) Chloride Level 106 mmol/L (98-107) Carbon Dioxide Level 29 mmol/L (21-32) Anion Gap 9 (6-14) Blood Urea Nitrogen 6 mg/dL (8-26) L Creatinine 1.1 mg/dL (0.7-1.3) Estimated GFR (Cockcroft-Gault) 81.3 BUN/Creatinine Ratio 5 (6-20) L Glucose Level 95 mg/dL (70-99) Calcium Level 8.6 mg/dL (8.5-10.1) Total Bilirubin 0.2 mg/dL (0.2-1.0) Aspartate Amino Transferase (AST) 18 U/L (15-37) Alanine Aminotransferase (ALT) 22 U/L (16-63) Alkaline Phosphatase 67 U/L (46-116) Total Protein 7.1 g/dL (6.4-8.2) Albumin 3.1 g/dL (3.4-5.0) L Albumin/Globulin Ratio 0.8 (1.0-1.7) L EKG EKG [] Radiology/Procedures Radiology/Procedures [] Impressions: Exam: CT abdomen and pelvis with contrast INDICATION: Abdominal pain TECHNIQUE: Sequential axial images through the abdomen and pelvis obtained following the administration of 75 mL of Omni 300 IV contrast. Sagittal and coronal reformatted images were reconstructed from the axial data and reviewed. Comparisons: 11/18/2019 FINDINGS: Heart size is normal. No pericardial effusion. Visualized lung bases are clear. No pleural effusion. Liver, spleen, pancreas, gallbladder and adrenals are unremarkable. These demonstrate symmetric enhancement. No perinephric inflammation or hydronephrosis. There is a nonobstructing 4 mm calculus at the mid right kidney. No ureteral calculi. Bladder is decompressed not well evaluated. Prostate is not enlarged. Mild wall thickening at the sigmoid colon is noted. Large and small bowel are unremarkable. Appendix is normal. No free intra-abdominal air or fluid. No obstruction. Abdominal aorta has a normal course and caliber. Abdominal vasculature is patent. No enlarged abdominal lymph nodes are identified. No suspicious osseous lesions or acute fractures. IMPRESSION: 1. Mild wall thickening at the sigmoid colon may represent a focal colitis. This may be infectious or inflammatory in etiology. 2. Nonobstructing right renal calculus. Exposure: One or more of the following in the visualized dose reduction techniques were utilized for this examination: 1. Automated exposure control 2. Adjustment of the MA and/or KV according to patient size 3. Use of iterative of reconstructive technique Electronically signed by: Alexa Mistry MD (12/13/2019 4:48 PM) [id number] DICTATED AND SIGNED BY: ALEXA MISTRY MD DATE: 12/13/19 1648 CC: KATEY CATALNA DO; ONEAL SWEET MD ~ Course & Med Decision Making Course & Med Decision Making Pertinent Labs and Imaging studies reviewed. (See chart for details) The patient's labs are unremarkable. His urinalysis is unremarkable. His CT scan does show some sigmoid colon wall thickening. This could be an exacerbation of his colitis. I will increase his mesalamine to 1.2g TID. He will follow up with his primary physician in the [facility] this week. He is stable for discharge at this time. He [] Dragon Disclaimer Dragon Disclaimer This electronic medical record was generated, in whole or in part, using a voice recognition dictation system. Departure Departure: Impression: Primary Impression: Colitis Disposition: 01 HOME, SELF-CARE Condition: STABLE Referrals: ONEAL SWEET MD (PCP) Patient Instructions: Ulcerative Colitis Scripts Mesalamine (LIALDA) 1.2 Gm Tablet. 1.2 GM PO TID for ulcerative colitis flare for 14 Days, #42 TAB Prov: KATEY CATALAN DO 12/13/19 KATEY CATALAN DO Dec 13, 2019 17:17
[2019-12-13] MEDS ORDERED: MESA1.2T PO (17:52)
[2019-12-13 18:00] VITALS: BP 158/80
== END 2019-12-13 17:59 | disposition home or self-care (01) ==
LOC: ER 15:33
DX: K52.9 Noninfective gastroenteritis and colitis, unspecified (principal); Z90.89 Acquired absence of other organs; Z88.2 Allergy status to sulfonamides; Z88.8 Allergy status to other drugs, medicaments and biological substances
CPT/HCPCS: 36415; 74177; 80053; 81001; 85025; 96360; 99285; Q9967; J7030